=== PATIENT | female | born 1985 | race African-American/Black ===

== ENCOUNTER 2017-11-03 17:12 | Emergency (ER) | payer MEDICARE ==
[2017-11-03 17:30] VITALS: BP 132/79
--- NOTE | 2017-11-03 17:38 | ED Physician Documentation ---
General Adult - HISTORIAN Historian: patient - HPI Stated Complaint: rash Chief Complaint: General Adult Onset: days ago (2) Timing: still present Severity: moderate Further Comments: yes (Pt is a 32 yo female with pruritic rash on abdomen, face and extremities. Pt was [place] for [place] in a [place] area 2 days ago while wearing a tank-top and shorts. Rash is in exposed areas only. Pt also has rash and some swelling around her eyes. Rash is pruritic.) - ROS CONST: no problems EYES/ENT: other (rash around eyes) CVS/RESP: none GI/: none MS/SKIN/LYMPH: rash - PAST HX Past History: other (depression, seizures, R eye surgery) Allergies/Adverse Reactions: Allergies Allergy/AdvReac Type Severity Reaction Status Date / Time No Known Allergies Allergy Verified 11/03/17 17:31 Home Medications: Ambulatory Orders Medication Instructions Recorded Carbamazepine [Tegretol] 200 mg PO BID 02/07/15 Citalopram Hydrobromide [Celexa] 40 mg PO DAILY 02/07/15 - SOCIAL HX Smoking History: non-smoker - FAMILY HX Family History: No - VITAL SIGNS Vital Signs: Vital Signs Temp Pulse Resp BP Pulse Ox 98.2 F 84 18 132/79 97 11/03/17 17:25 11/03/17 17:25 11/03/17 17:25 11/03/17 17:25 11/03/17 17:25 - REVIEWED ASSESSMENTS Nursing Assessment Reviewed: Yes Vitals Reviewed: Yes Progress - Progress Progress: Rx Prednisone 10 mg. 6 tabs po qd x 2 days; then 5 tabs po qd x 2 days; then 4 tabs po qd x 2 days; then 3 tabs po qd x 2 days;then 2 tabs po qd x 2 days; then 1 tab po qd x 2 days; then stop. Benadryl, Pepcid as directed. Oatmeal baths prn General Adult Physical Exam - PHYSICAL EXAM GENERAL APPEARANCE: moderate distress EENT: pharynx normal NECK: normal inspection, supple RESPIRATORY: no resp distress, chest non-tender, breath sounds normal CVS: reg rate & rhythm, heart sounds normal ABDOMEN: soft, no organomegaly, normal bowel sounds BACK: normal inspection, no CVA tenderness SKIN: other (erythematous rash on on abdomen, extremities, linear on abd c/w poison serafin brush contact) EXTREMITIES: non-tender, normal range of motion NEURO: oriented X3, motor nml, sensation nml Discharge Clincal Impression: Poison serafin Referrals: Cathy Murillo PRN [Primary Care Provider] - Condition: Good Disposition: 01 HOME, SELF-CARE Decision to Admit: NO Decision Time: 18:00
== END 2017-11-03 18:02 | disposition home or self-care (01) ==
LOC: ED 17:12
DX: L25.5 Unspecified contact dermatitis due to plants, except food (principal)
CPT/HCPCS: 99283